=== PATIENT | male | born 1975 | race Caucasian/White ===

== ENCOUNTER 2017-08-26 18:45 | Emergency (ER) | payer BC, SELFPAY ==
[2017-08-26 18:46] VITALS: BP 158/96; PULSE 79; RESP 16; TEMP 37.2; O2SAT 100; BMI 21.9
--- NOTE | 2017-08-26 20:06 | EKG12_ITS ---
Test Reason : Blood Pressure : / mmHG Vent. Rate : 069 BPM Atrial Rate : 069 BPM P-R Int : 156 ms QRS Dur : 096 ms QT Int : 384 ms P-R-T Axes : 070 069 026 degrees QTc Int : 411 ms Normal sinus rhythm Low voltage QRS (limb leads) Septal [place], age undetermined, cannot be excluded Confirmed by PERLA ZAMAN, ELICEO ([id number]), map editor YAIR SAUNDERS ([id number]) on 08/31/2017 1:56:52 PM Referred By: JESSICA Confirmed By:ELICEO DUNCAN MD
[2017-08-26] MEDS: 0.9% Normal Saline 1,000 ML 125 ML IV (20:22)
[2017-08-26] MEDS: Ondansetron 4 MG/2 ML Vial IV (20:23)
[2017-08-26 20:24] LABS: Bacteria 0 SEEN /hpf (None Seen); Mucous, Urine 0 SEEN /hpf (<or=2+); Red Blood Cells-Urine 0 SEEN /hpf (0-5); Squamous Epithelial Cells - UA 0 SEEN /hpf (0-5); White Blood Cells 0 SEEN /hpf (0-5)
[2017-08-26 20:25] LABS: Color, Urine Yellow (Yellow); Glucose, Dipstick Normal (Normal); Ketone-Dipstick Negative (Negative); Leukocyte Esterase-Dipstick Negative /ul (Negative); Nitrite-Dipstick Negative (Negative); Occult Blood-Urine Negative /ul (Negative); Protein-Dipstick Negative (Negative); Specific Gravity, Urine 1.015 (1.002-1.030); Urine Bilirubin Dipstick Negative (Negative); Urine Clarity Clear (Clear); Urine Urobilinogen Normal (Normal)
[2017-08-26 20:32] LABS: Absolute Lymphocyte Count 2.39 X10^3/ul (0.83-4.51); Basophil# 0.06 X10^3/uL; Basophil% 0.6 % (0-1); Eosinophil# 0.29 X10^3/uL; Eosinophils% 3.1 % (0-5); Hematocrit 49.4 % (40-54); Hemoglobin 17.2 g/dl (13.0-16.5); Lymphocyte # 2.39 X10^3/ul (4.0); Lymphocyte % 25.4 % (19-41); Mean Corp Hgb Conc 34.8 g/gl (32-36); Mean Platelet Vol. 10.5 fl (6.2-12.0); Monocyte# 0.68 X10^3/uL; Monocyte% 7.2 % (0-10); Neutrophil # 5.99 X10^3/uL (2.7-7.7); Neutrophil % 63.6 % (47-70); Platelet Count 216 K/mm3 (150-450); RBC Distribution Width CV 13.4 % (11.6-14.6); RBC Distribution Width SD 43.7 fl (35.1-43.9); Red Blood Count 5.55 M/mm3 (4.6-6.2); White Blood Count 9.4 K/mm3 (4.4-11.0)
[2017-08-26 20:39] LABS: ALB/GLOB Ratio 1.2 RATIO (0.9-2.4); AST(SGOT) 18 U/L (15-37); Alanine Aminotransfer ALT/SGPT 21 U/L (16-61); Albumin, Serum 4.4 g/dL (3.2-5.0); Alkaline Phosphatase 86 U/L (45-117); Anion Gap 7 (5-15); BUN 18 mg/dL (7-18); BUN/Creat Ratio 20.9 RATIO (10-20); Calcium,Total 9.1 mg/dL (8.5-10.1); Chloride 103 mmol/L (98-107); Creatinine, Serum 0.86 mg/dL (0.70-1.30); EST Glomerular Filtration Rate 103 mL/min (>60); Est Glom Filt Rate - Afr Amer 124 mL/min (>60); Estimated Creatinine Clearance 114.98 ml/min; Globulin 3.7 g/dL (2.2-4.2); Glucose 87 mg/dL (74-106); Lipase 114 U/L (73-393); POSITIVE COUNT NO; POSITIVE DIFFERENTIAL NO; POSITIVE MORPHOLOGY NO; Potassium 3.7 mmol/L (3.5-5.1); Protein, Total 8.1 g/dL (6.4-8.2); Sodium Level 139 mmol/L (136-145)
--- NOTE | 2017-08-26 20:41 | RAD_ITS ---
STUDY: X-RAY CHEST REASON FOR EXAM: Male, 42 years old. Chest pain TECHNIQUE: Frontal and lateral views of the chest were obtained. COMPARISON: April 06, 2017 FINDINGS: The lungs are hyperinflated. There are no focal airspace opacities. There is no demonstrated pleural abnormality. The cardiac silhouette is normal in size. The mediastinum and hilar regions are unremarkable. Normal visualized pulmonary arteries. Normal visualized aortic arch and descending thoracic aorta. There are diffuse degenerative changes of the visualized spine. There are surgical changes in the cervical spine. The visualized ribs, clavicles, and shoulders are unremarkable. There is no demonstrated abnormality of the visualized upper abdomen. RAD/Chest PA and Lateral IMPRESSION: No acute cardiopulmonary abnormalities or changes. Stable COPD. Electronically Signed: Massiel Subramanian MD at 22:58 EST Tel Direct: [phone], Service support ,
--- NOTE | 2017-08-26 20:42 | CT_ITS ---
STUDY: CT ABDOMEN AND PELVIS WITH CONTRAST REASON FOR EXAM: Male, 42 years old. Increasing abdominal pain. RADIATION DOSAGE (If Supplied By Facility): CTDIvol = ( 9.24 ) mGy, DLP = ( 450.86 ) mGycm TECHNIQUE: Transaxial images were obtained from the dome of the diaphragm to the symphysis pubis with oral contrast. 100 ml of Isovue 300 contrast was administered. Sagittal and coronal images were reconstructed. Individualized dose optimization techniques were used for this CT. COMPARISON: None. FINDINGS: Minimal posterior atelectatic changes. The visualized portions of the heart are within normal limits. Subcentimeter cysts of the liver. Otherwise unremarkable liver. Normal gallbladder and extrahepatic biliary system. Normal spleen. Normal pancreas. Normal bilateral adrenal glands. Multiple subcentimeter cyst of the right kidney. Otherwise normal right kidney without hydronephrosis or stones. Normal left kidney without hydronephrosis or stones. Normal visualized stomach. Normal small intestine. Normal colon. The appendix is visualized and appears normal. Minimal calcified plaque of the aorta. Normal inferior vena cava. Normal retroperitoneum. Normal urinary bladder. Normal abdominal wall. There are diffuse degenerative changes of the visualized lumbar spine with a minimal levoscoliosis. CT/Abdomen/Pelvis WITH Contrast IMPRESSION: No acute abdominal or pelvic findings. Negative for evidence of bowel perforation, obstruction or inflammatory bowel changes. A normal appendix is identified. Normal kidneys bilaterally without hydronephrosis, renal, ureteral or bladder stones. Unremarkable moderately distended urinary bladder. Simple renal cysts. Simple hepatic cysts. Unremarkable gallbladder, pancreas and spleen. Electronically Signed: Aby Kitchen MD at 22:46 EST , Service support ,
[2017-08-26 20:43] LABS: Amorphous Sediment 2+
[2017-08-26 21:00] VITALS: RESP 16
[2017-08-26 21:56] VITALS: BP 140/93; PULSE 62; RESP 16; O2SAT 98
--- NOTE | 2017-08-26 23:24 | ED.VISSUMM ---
- ER Visit Summary Date of Service: 08/26/17 Chief Complaint: abdominal pain and back pain History of Present Illness: The patient is a 42 M who presents for 1 week of lower back and abdominal pain. Patient thought that he pulled a muscle in his back 1 month ago and has had back pain ever since. For 1 week he is now having lower frontal abdominal pain as well. He went to the chiropractor 2 weeks ago has had no improvement. 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 He denies vomiting, diarrhea, constipation, urinary symptoms, chest pain, shortness of breath or fever. Physical Examination: Vital signs: afebrile, hemodynamically stable, no hypoxia on room air General: well nourished, well developed, in no distress Skin: warm, dry, no rash, no pallor HEENT: normocephalic and atraumatic; PERRL, EOMI, moist mucous membranes Cardiovascular: regular rate and rhythm without murmurs, no peripheral edema, 2+ pulses all distal extremities Respiratory: No increased work of breathing, lungs are clear to auscultation bilaterally, no rales, rhonchi or wheezing Abdominal: Abdomen is soft, mild suprapubic tenderness without mass, with normoactive bowel sounds, no guarding or rebound, no masses, normal exam, no hernias MSK: Moves all extremities, no deformities, normal strength Neuro: Awake and alert, oriented ?4. No facial droop, sensation and motor function intact and symmetric Test Results: Abnormal Lab Results 08/26/17 08/26/17 08/26/17 20:15 20:15 20:20 WBC 9.4 RBC 5.55 Hgb 17.2 H Hct 49.4 MCV 89.0 MCH 31.0 MCHC 34.8 RDW 13.4 RDW Differential 43.7 Plt Count 216 MPV 10.5 Immature Gran % (Auto) 0.100 Neut % (Auto) 63.6 Lymph % (Auto) 25.4 Piatt % (Auto) 7.2 Eos % (Auto) 3.1 Baso % (Auto) 0.6 Absolute Neuts (auto) 6.0 Absolute Lymphs (auto) 2.39 Total Counted Not Reportable Sodium 139 Potassium 3.7 Chloride 103 Carbon Dioxide 29.0 Anion Gap 7 BUN 18 Creatinine 0.86 Estim Creat Clear Calc 114.98 Est GFR (MDRD) Af Amer 124 Est GFR (MDRD) Non-Af 103 BUN/Creatinine Ratio 20.9 H Glucose 87 Calcium 9.1 Total Bilirubin 0.30 AST 18 ALT 21 Alkaline Phosphatase 86 Troponin I < 0.02 Total Protein 8.1 Albumin 4.4 Globulin 3.7 Albumin/Globulin Ratio 1.2 Lipase 114 Urine Color Yellow Urine Clarity Clear Urine pH 7.0 Ur Specific [place] 1.015 Urine Protein Negative Urine Glucose (UA) Normal Urine Ketones Negative Urine Occult Blood Negative Urine Nitrite Negative Urine Bilirubin Negative Urine Urobilinogen Normal Ur Leukocyte Esterase Negative Urine RBC 0 SEEN Urine WBC 0 SEEN Ur Squamous Epith Cells 0 SEEN Amorphous Sediment 2+ Urine Bacteria 0 SEEN Urine Mucus 0 SEEN Emergency Department Course and Treatment: Patient was given morphine, Zofran and fluids for symptomatic relief. His labs were unremarkable. EKG was performed since patient is also complaining of epigastric discomfort that he associates with GERD. No ischemic changes. Troponin negative. Chest x-ray showed no acute process. CT of the abdomen and pelvis showed no abnormalities. Patient was given Toradol after no improvement with morphine, and he had great improvement in his pain. Most likely he is having musculoskeletal pain from over exertion. No emergent findings were found on his examination. Patient requested a prescription for Protonix, as he has been off this medication and found that it helps his GERD the most. This prescription was written. Patient will use anti-inflammatories as needed for his abdominal wall and low back pain. Patient agreed with this plan was discharged home. Treatment Plan: [] Disposition: [] Impression: GERD, musculoskeletal strain of abdominal wall and lower back This note was generated with [employer] dictation software. It may contain incorrect words, spelling, and punctuation that were not noted in review of the chart prior to signing ED Disposition - Plan for ED Patient: Disposition: Home or Assisted Living Chief Complaint: Abd Pain Instructions: ED Strain Abdominal Muscle Prescriptions: Pantoprazole Sodium [Protonix] 40 mg PO BID #60 tab Referrals: Faustino Ruvalcaba MD [STAFF PHYSICIAN] - Care Physician,No Primary [Primary Care Provider] - Additional Instructions: Please use naproxen as needed for your back and abdominal muscle pain. Please establish care with a primary care doctor for further workup and management of your reflux disease. There is one listed on this paperwork if you do not have a doctor in mind. If you have any worsening of your condition or any new concerning symptoms, please come back immediately to the emergency department for another evaluation.
[2017-08-26 23:46] VITALS: BP 130/85; PULSE 64; RESP 14; O2SAT 98
== END 2017-08-26 23:49 | disposition home or self-care (01) ==
PROVIDERS: Emergency Provider Emergency Medicine
DX: K21.9 Gastro-esophageal reflux disease without esophagitis (principal); S39.011A Strain of muscle, fascia and tendon of abdomen, initial encounter; S39.012A Strain of muscle, fascia and tendon of lower back, initial encounter; X58.XXXA Exposure to other specified factors, initial encounter; Y93.9 Activity, unspecified; Y92.9 Unspecified place or not applicable; Y99.9 Unspecified external cause status; Z72.0 Tobacco use; Z79.899 Other long term (current) drug therapy
CPT/HCPCS: 71046; 74177; 80053; 81001; 83690; 84484; 85025; 93005; 96361; 96374; 96375; 99283; J7030; Q9967; J2405

== ENCOUNTER 2018-08-28 08:18 | Emergency (ER) | payer BC, SELFPAY ==
[2018-08-28 08:20] VITALS: BP 155/95; PULSE 68; RESP 16; TEMP 36.8; O2SAT 100; BMI 24.5
--- NOTE | 2018-08-28 08:49 | RAD_ITS ---
STUDY: X-RAY - CERVICAL SPINE REASON FOR EXAM: Male, 43 years old. Neck pain. History of prior fusion. TECHNIQUE: 3 view(s) of the cervical spine were obtained. COMPARISON: None FINDINGS: Normal anterior atlantoaxial articulation. Normal odontoid process. There is straightening of the normal cervical lordosis. Anterior spondylosis at the C4-C5 level. Fusion at the C5-C6 level. Anterior fusion at the C6-C7 level. Normal visualized intervertebral neuroforamina. The soft tissue structures are unremarkable. RAD/Cerv Spine 2 or 3 Views IMPRESSION: Straightening of the normal cervical lordosis. The C5-C6 bodies are fused. Anterior fusion at the C6-C7 level. Electronically Signed: Jesus Joy MD at 9:37 EST , Service support ,
--- NOTE | 2018-08-28 08:49 | RAD_ITS ---
STUDY: X-RAY - RIGHT SHOULDER REASON FOR EXAM: Male, 43 years old. Shoulder pain. No known injury. TECHNIQUE: 4 view(s) of the shoulder. COMPARISON: None. FINDINGS: Normal glenohumeral articulation. Normal acromioclavicular joint. Normal acromion. Normal humeral head and visualized proximal humerus. Prior fusion of the lower cervical spine. The soft tissue structures are unremarkable. Normal visualized pulmonary apex. RAD/Shoulder min 2 Views IMPRESSION: No acute abnormality is seen. Electronically Signed: Jesus Joy MD at 9:34 EST , Service support ,
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
== END 2018-08-28 11:04 | disposition home or self-care (01) ==
PROVIDERS: Emergency Provider Emergency Medicine
DX: M25.511 Pain in right shoulder (principal); M54.2 Cervicalgia; K21.9 Gastro-esophageal reflux disease without esophagitis; Z72.0 Tobacco use; Z79.899 Other long term (current) drug therapy
CPT/HCPCS: 72040; 73030; 99282

== ENCOUNTER 2019-08-29 06:03 | Emergency (ER) | payer BC, SELFPAY ==
[2019-08-29 06:04] VITALS: BP 163/91; PULSE 74; RESP 16; TEMP 36.6; O2SAT 99; BMI 25.2
--- NOTE | 2019-08-29 06:24 | ED.DCSUM_ITS ---
History of Present Illness Chief Complaint: Eye Problem Informant: Patient Onset: Days Context: Gradual Onset Timing: Continuous Narrative: Patient is evaluated for concern of pinkeye. Patient has had dry, itchy and minh darline eyes for the past 2 days. He is also had associated nasal congestion and a slight cough as well as sore throat. He did not think too much of it but then a coworker of his was recently diagnosed with pinkeye and his eyes look quite bad. Patient was concerned that he might also be getting pinkeye so he came to emergency room. He also had a red bump on his left lower eyelid a couple days ago that seems to be getting better but was mildly painful. He is never had anything like that before. He denies any vision changes. He does wear corrective lenses as well as contacts. He is been wearing corrective lenses lately because the contacts are bothering his eyes.He has been using [id number] eyedrops with some relief of his symptoms. He denies any fever or chills. He denies any other complaints at this time. His significant other was slightly worried because she is and did know this is something that could potentially harm the baby. Past Medical History - Allergies and Home Meds Allergies/Adverse Reactions: Allergies erythromycin base Allergy (Verified 08/29/19 06:08) Unknown sulfamethoxazole [From Bactrim] Allergy (Verified 08/29/19 06:08) Hives trimethoprim [From Bactrim] Allergy (Verified 08/29/19 06:08) Hives Primary Care Physician: Care Physician,No Primary [Primary Care Provider] - Past Medical History: None Surgical History: noncontributory Lives: Spouse/ Significant Other Smoking Status: Current every day smoker Review of Systems General: Denies: Chills, Fever, Sweats Eyes: Reports: - - Dry eye, watery eyes. Denies: Visual changes - bilaterally, Blurred Vision - bilaterally, Diplopia ENT: Reports: Sore throat, - - Congestion. Denies: Bilateral ear pain, Rhinorrhea Cardiovascular: Denies: Chest pain, Palpitations Respiratory: Reports: Cough. Denies: Dyspnea, Sputum, Dyspnea on exertion Gastrointestinal: Denies: Abdominal pain, Nausea, Vomiting, Diarrhea, Melena, Hematochezia Genitourinary: Denies: Dysuria, Hematuria, Frequency Musculoskeletal: Denies: Back pain, Extremity Pain Skin: Denies: Rash, Wounds Neurological: Denies: Headache, Weakness, Numbness Physical Exam Vital Signs/Narrative: Vital Signs Temp Pulse Resp BP Pulse Ox 08/29/19 06:04 97.9 F 74 16 163/91 H 99 Inital Vital Signs reviewed: Yes General: Well nourished, Well developed, No Acute Distress Head: Normocephalic, Atraumatic Eyes: Perrl, EOMI, - - No Conjunctival injection, patient does have a very small red bump on the inner lower lid consistent with a resolving stye. No discharge present. Negative for: Pale conjunctiva ENT: Moist mucous membranes, No rhinorrhea, TM's clear, - - Mild erythema of the oropharynx, no edema or exudate present Neck: Supple, Nontender Cardiovascular: Regular rate, Regular rhythm, No murmurs Respiratory: No distress, CTA bilaterally, Chest nontender Abdomen: Soft, Nontender, Nondistended, Normal bowel sounds Skin: Normal color, No rash Neurological: Alert, Oriented x3 Psychological: Normal affect, Normal Mood Diagnostic/Tx/Re-eval - Medical Decision Making Patient is evaluated for 2 to 3 days of dry itchy eyes and concern for pinkeye. He has had an exposure with concern for bacterial conjunctivitis. Clinically patient likely has a viral conjunctivitis. He does not have any vision changes. I do not think a funduscopic exam or tonometry is indicated at this time. He is well-appearing. He also has to be what appears to be resolving hordeolum. Patient is counseled on warm compresses for his left eye. He is counseled that this does not need antibiotics and he should continue to use lubricating eyedrops as needed. He will be given a [id number] prescription for ciprofloxacin drops in case he develops more severe symptoms consistent with bacterial conjunctivitis. Patient is counseled on signs and symptoms requiring return to the emergency room. Patient verbalizes agreement and understand this plan. Patient discharged home in stable and improved condition. ED Disposition - Plan for ED Patient: Disposition: Home or Assisted Living Diagnosis: Viral conjunctivitis of both eyes, Sty, internal Instructions: CONJUNCTIVITIS, Viral, Sty Prescriptions: Ciprofloxacin 0.3% [Ciloxan] 1 drp EACH EYE Q4 3 Days #1 bottle Prescription Printed Referrals: Alen Quinones MD [STAFF PHYSICIAN] - As Needed Additional Instructions: I suspect you have a viral infection causing her symptoms. You do not require antibiotics. Should you have significant worsening of your symptoms with swelling of your eyelids, redness and crusting you may start using antibiotic drops. Otherwise do not use them. Use [id number] lubricating eyedrops for your dry eye sensation. Follow-up with ophthalmology, Dr. Quinones, as needed.
== END 2019-08-29 06:34 | disposition home or self-care (01) ==
PROVIDERS: Emergency Provider Emergency Medicine
DX: B30.9 Viral conjunctivitis, unspecified (principal); H00.015 Hordeolum externum left lower eyelid; F17.200 Nicotine dependence, unspecified, uncomplicated
CPT/HCPCS: 99282

== ENCOUNTER → 2023-11-30 | Outpatient (CLI) | payer BC, SELFPAY ==
[2023-11-30 12:23] LABS: Absolute Lymphocyte Count 2.67 X10^3/uL (0.83-4.51); Absolute Neutrophil Count 3.2 X10^3/uL (2.0-7.7); Basophil# 0.04 X10^3/uL; Basophil% 0.6 % (0-1); Eosinophils% 4.5 % (0-5); Hematocrit 48.5 % (40-54); Hemoglobin 16.4 g/dL (13.0-16.5); Lymphocyte # 2.67 X10^3/ul (0.83-4.51); Lymphocyte % 40.2 % (19-41); Mean Corp Hgb Conc 33.8 g/dL (32-36); Mean Corpuscular Hgb 29.8 pg (27.0-32.0); Mean Platelet Vol. 10.6 fl (6.2-12.0); Monocyte# 0.47 X10^3/uL; Monocyte% 7.1 % (0-10); NRBC Flagged by Analyzer 0 % (0-5); Neutrophil # 3.15 X10^3/uL (2.7-7.7); Neutrophil % 47.4 % (47-70); Platelet Count 195 K/mm3 (150-450); RBC Distribution Width CV 13.2 % (11.6-14.6); RBC Distribution Width SD 43.1 fl (35.1-43.9); Red Blood Count 5.51 M/mm3 (4.6-6.2); White Blood Count 6.6 K/mm3 (4.4-11.0)
[2023-11-30 13:01] LABS: ALB/GLOB Ratio 1.1 RATIO (0.9-2.4); AST(SGOT) 12 U/L (15-37); Alanine Aminotransfer ALT/SGPT 20 U/L (16-61); Albumin, Serum 3.9 g/dL (3.2-5.0); Alkaline Phosphatase 73 U/L (45-117); Anion Gap 6 (5-15); BUN 11 mg/dL (7-18); BUN/Creat Ratio 12.6 RATIO (10-20); Calcium,Total 9.1 mg/dL (8.5-10.1); Chloride 106 mmol/L (98-107); Cholesterol 148 mg/dL (200); Creatinine, Serum 0.88 mg/dL (0.70-1.30); EST Glomerular Filtration Rate 98 mL/min (>60); Est Glom Filt Rate - Afr Amer 119 mL/min (>60); Globulin 3.4 g/dL (2.2-4.2); Glucose 97 mg/dL (74-106); High Density Lipoprotein 38 mg/dL; PSA,Total - Annual Screen 0.48 ng/mL (0.00-4.00); Protein, Total 7.3 g/dL (6.4-8.2); Sodium Level 138 mmol/L (136-145); Triglycerides 68 mg/dL; Very Low Density Lipoprotein 14 mg/dL (5-40)
== END | disposition home or self-care (01) ==
LOC: BFHLAB 10:57
PROVIDERS: PCP Nurse Practitioner Family; Referring Provider Nurse Practitioner Family; Visit Provider Nurse Practitioner Family
DX: Z00.01 Encounter for general adult medical examination with abnormal findings (principal); Z12.5 Encounter for screening for malignant neoplasm of prostate
CPT/HCPCS: 36415; 80053; 80061; 84153; 85025; G0103

== ENCOUNTER → 2025-01-15 | Outpatient (CLI) | payer BC, SELFPAY ==
[2025-01-15 15:50] LABS: Hematocrit 46.0 % (40-54); Hemoglobin 15.5 g/dL (13.0-16.5); Immature Granulocytes Count 0.040 X10^3/uL (0.0-0.0); Mean Corp Hgb Conc 33.7 g/dL (32-36); Mean Corpuscular Volume 91.3 fL (80-94); Mean Platelet Vol. 11.0 fl (6.2-12.0); NRBC Flagged by Analyzer 0 % (0-5); Platelet Count 216 K/mm3 (150-450); RBC Distribution Width CV 13.6 % (11.6-14.6); RBC Distribution Width SD 45.9 fl (35.1-43.9); Red Blood Count 5.04 M/mm3 (4.6-6.2); White Blood Count 8.7 K/mm3 (4.4-11.0)
[2025-01-15 16:40] LABS: Cholesterol 150 mg/dL (<=200); Low Density Lipoprotein Calc. 84 mg/dL; Triglycerides 140 mg/dL; Very Low Density Lipoprotein 28 mg/dL (5-40); cholesterol:hdl ratio screen 3.92
[2025-01-15 16:41] LABS: AST(SGOT) 24 U/L (<=37); Alanine Aminotransfer ALT/SGPT 12 U/L (<=46); Albumin, Serum 4.2 g/dL (3.5-5.0); Alkaline Phosphatase 72 U/L (40-129); Anion Gap 13 (5-15); BUN 9 mg/dL (4-19); BUN/Creat Ratio 11.5 RATIO (10-20); Calcium,Total 9.4 mg/dL (7.6-11.0); Carbon Dioxide 22.3 mmol/L (21.0-32.0); Chloride 106 mmol/L (98-108); Globulin 2.5 g/dL (2.2-4.2); Glucose 104 mg/dL (70-99); Potassium 4.5 mmol/L (3.3-5.1)
[2025-01-16 21:12] LABS: PSA,Total - Annual Screen 0.51 ng/mL (0.02-4.00)
== END | disposition home or self-care (01) ==
LOC: BFHLAB 13:27
PROVIDERS: PCP Nurse Practitioner Family; Visit Provider Nurse Practitioner Family
DX: Z00.01 Encounter for general adult medical examination with abnormal findings (principal); Z12.5 Encounter for screening for malignant neoplasm of prostate
CPT/HCPCS: 36415; 80053; 80061; 84153; 85025; G0103